=== PATIENT | female | born 1985 | race African-American/Black ===

== ENCOUNTER 2016-05-28 11:13 | Emergency (ER) | payer MEDICAID, OTHER ==
[~2016-05-28] VITALS: Ht 175.3 cm; Wt 130.0 kg
[~2016-05-28 11:13] MED LIST: AUGM875T PO; DIFL150T PO; PRED50 PO
[2016-05-28 11:14] VITALS: BP 134/68; PULSE 76; RESP 18; TEMP 97.9; O2SAT 100
[2016-05-28] MEDS ORDERED: KETOROLAC TROMETHAMINE 60 MG/2 ML (IM) VIAL IM ONE (11:45)
[2016-05-28] MEDS ORDERED: ORPHENADRINE INJ 60 MG/2 ML AMP IM ONE (11:45)
--- NOTE | 2016-05-28 11:56 | PD ---
HPI Chief Complaint: Pain: Acute or Chronic Time Seen by Provider: 11:56 Travel History International Travel<30 days: No Contact w/Intl Traveler<30days: No Traveled to known affect area: No History of Present Illness HPI 30-year-old female, with chronic neck pain, presents to the emergency Department with complaint of right lateral neck pain with worsening over the past couple months. Denies new or recent injury. She has history of chronic neck pain after a traumatic injury in 2011 causing compression fractures with surgical repair in her neck. Over the past few months she has had radiation of pain from her neck down her right arm. Reports as a shocking/burning sensation when they occur. She has followed up with primary care provider and has been given narcotics but she does not want to take them because she is trying to work her job and take care of her children. Reports smoking marijuana numbs the pain and is the only thing that helps the pain, but she cannot smoke marijuana because of her job. Pain is aggravated with movement of the neck, palpation of the neck, movement of the right arm, and spontaneously. Reports numbness and tingling in her right arm that is worse at night. Denies loss of sensation, decreased range of motion, decreased strength to the right upper extremity. Denies fever, chills, nausea, vomiting. Allergies to Cipro and Percocet. Dr. Bay is primary care provider. Has an appointment with Dr. Bay tomorrow morning at 9 AM. No other modifying factors or associated signs and symptoms. PFSH Past Medical History Diabetes: Yes (not current) Diminished Hearing: No ?: Not : 1 Miscarriage: 1 Past Surgical History Abdominal Surgery: No Social History Alcohol Use: No Tobacco Use: Yes (1/2 PK) Substance Use: No Allergies-Medications (Allergen,Severity, Reaction): Coded Allergies: Percocet (Verified Allergy, Severe, 05/28/16) Cipro (Verified Allergy, Mild, ITCH AND PASSOUT, 05/28/16) Reported Meds & Prescriptions Reported Meds & Active Scripts Active Medrol Dosepak (Methylprednisolone) 4 Mg Dspk 4 Mg PO DIRECTED Per Pharmacist direction Robaxin (Methocarbamol) 500 Mg Tab 500 Mg PO QID PRN Ibuprofen 800 Mg Tab 800 Mg PO Q6HR PRN Review of Systems Except as stated in HPI: all other systems reviewed are Neg Physical Exam Narrative GENERAL: Well-nourished, well-developed female patient, in no acute distress; tearful and appears painful SKIN: Warm and dry. HEAD: Atraumatic. Normocephalic. EYES: Pupils equal and round. No scleral icterus. No injection or drainage. ENT: Mucosa pink and moist. Airway patent. NECK: Trachea midline. No lymphadenopathy. Active rotation of the neck greater than 45 left and right. No midline point tenderness on palpation of the cervical spine. Reproducible tenderness to the musculature of the right lateral neck No obvious deformities. CARDIOVASCULAR: Regular rate. RESPIRATORY: No accessory muscle use. GASTROINTESTINAL: Obese. MUSCULOSKELETAL: Right upper extremity supple and non-tense with 2+ radial pulse and sensory intact without erythema or edema; with full range of motion and strength. No obvious deformities. No clubbing. No cyanosis. No edema. Normal gait. BACK: No point tenderness on palpation of spine. No obvious deformities. NEUROLOGICAL: Awake and alert. Oriented 3. No obvious cranial nerve deficits. Motor grossly within normal limits. Normal speech. Moves all extremities. 5/5 strength to all extremities. Sensory intact. PSYCHIATRIC: Appropriate mood and affect; insight and judgment normal. Data Data Last Documented VS Vital Signs Date Time Temp Pulse Resp B/P Pulse Ox O2 Delivery O2 Flow Rate FiO2 05/28/16 11:14 97.9 76 18 134/68 100 Room Air Orders Ketorolac Inj (Toradol Inj) (05/28/16 11:45) Orphenadrine Inj (Norflex Inj) (05/28/16 11:45) MDM Medical Decision Making Medical Screen Exam Complete: Yes Emergency Medical Condition: Yes Medical Record Reviewed: Yes Differential Diagnosis Acute exacerbation of chronic neck pain, cervical radiculopathy, muscle spasms of neck Narrative Course 30-year-old female with chronic neck pain secondary to compression fractures from 2012 after a fall; physical exam and history of present illness consistent with right-sided cervical radiculopathy. No new or recent injury. Patient has been experiencing shooting pains down her right arm for the last [address] Bay is a very care provider. Patient is afebrile and nontoxic-appearing. Neurologically intact. Moving neck freely. Ambulatory with normal gait. No midline point tenderness on palpation of the cervical spine. Toradol and Norflex administered in the ER. Ibuprofen, Robaxin, Medrol Dosepak prescribed for home. Patient has appointment with Dr. Bay tomorrow morning at 9 AM for follow-up. Patient is medically cleared and stable for discharge. Discussed reasons to return to the emergency department. Instructed patient to follow up with primary care provider. Patient agrees with treatment plan. The patients vital signs are stable and the patient is stable for outpatient follow-up and treatment. Patient discharged home, stable and in no acute distress. Diagnosis Primary Impression: Chronic neck pain Additional Impression: Cervical radiculopathy Referrals: Primary Care Physician Patient Instructions: Cervical Radiculopathy (ED), General Instructions, Neck Pain (ED) Additional Instructions: Tylenol or ibuprofen as directed and as needed to reduce pain Robaxin as prescribed for muscle spasms Get adequate rest Ice and/or heating pad to affected area to reduce pain Avoid aggravating activity; increase activity as tolerated Follow-up with primary care provider Return to the emergency department immediately with worsening symptoms Med/Other Pt SpecificInfo: Prescription(s) given Scripts Methylprednisolone Dosepak (Medrol Dosepak)4 Mg Dspk4 Mg PO DIRECTED #1 DSPK Ref 0 Per Pharmacist direction Prov:Rubi Barraza 05/28/16 Methocarbamol (Robaxin)500 Mg [id number] Mg PO QID PRN (MUSCLE SPASM) #30 TAB Ref 0 Prov:Rubi Barraza 05/28/16 Ibuprofen 800 Mg [id number] Mg PO Q6HR PRN (PAIN) #30 TAB Ref 0 Prov:Rubi Barraza 05/28/16 Disposition: 01 DISCHARGE HOME Condition: Stable Rubi Barraza May 28, 2016 11:56
[2016-05-28] MEDS ORDERED: MEDR4PAK PO (11:59)
[2016-05-28] MEDS ORDERED: IBUP800T23 PO (11:59)
[2016-05-28] MEDS ORDERED: ROBA500T PO (11:59)
== END 2016-05-28 12:26 | disposition home or self-care (01) ==
LOC: NEPB 11:13
DX: M54.2 Cervicalgia (principal); M54.12 Radiculopathy, cervical region
CPT/HCPCS: 96372; 99282; J1885; J2360

== ENCOUNTER 2016-07-08 14:01 | Emergency (ER) | payer MEDICAID ==
[~2016-07-08] VITALS: Ht 175.3 cm; Wt 125.0 kg
[~2016-07-08 14:01] MED LIST changes: -AUGM875T PO; -DIFL150T PO; +IBUP800T23 PO; +MEDR4PAK PO; -PRED50 PO; +ROBA500T PO
[2016-07-08 14:03] VITALS: BP 137/62; PULSE 82; RESP 20; TEMP 98.9; O2SAT 97
--- NOTE | 2016-07-08 14:06 | PD ---
Physical Exam Time Seen by Provider: 14:04 Narrative 31 year old female presents for evaluation of skin lesions for one week. VSS Seen at triage desk. Awaiting bed placement. Data Data Last Documented VS Vital Signs Date Time Temp Pulse Resp B/P Pulse Ox O2 Delivery O2 Flow Rate FiO2 07/08/16 14:03 98.9 82 20 137/62 97 Room Air [facility] Medical Record Reviewed: Yes Supervised Visit with LUCIANA: Yes Twin Amaya Jul 08, 2016 14:06
[2016-07-08] MEDS ORDERED: MOBI15TA PO (15:08)
[2016-07-08] MEDS ORDERED: CLIN1CAP5 PO (15:08)
[2016-07-08] MEDS ORDERED: BACT800T5 PO (15:08)
--- NOTE | 2016-07-08 15:08 | PD ---
HPI Chief Complaint: Lump, Cyst, Hernia Time Seen by Provider: 14:58 Travel History International Travel<30 days: No Contact w/Intl Traveler<30days: No Traveled to known affect area: No History of Present Illness HPI 31-year-old female complains of painful lumps on the axilla and groin area. Patient states that the symptoms started a week ago. Patient denies any fever chills. Patient states the pain is sharp pain localized to left axilla an inguinal area. Patient denies any pain radiation. Patient denies any chance of being . PFSH Past Medical History Diabetes: Yes (not current) Patient Takes Glucophage: Yes Diminished Hearing: No ?: Not : 1 Miscarriage: 1 Past Surgical History Abdominal Surgery: No Social History Alcohol Use: No Tobacco Use: Yes (1/2 PK) Substance Use: No Allergies-Medications (Allergen,Severity, Reaction): Coded Allergies: Percocet (Verified Allergy, Severe, 07/08/16) Cipro (Verified Allergy, Mild, ITCH AND PASSOUT, 07/08/16) Reported Meds & Prescriptions Reported Meds & Active Scripts Active Medrol Dosepak (Methylprednisolone) 4 Mg Dspk 4 Mg PO DIRECTED Per Pharmacist direction Robaxin (Methocarbamol) 500 Mg Tab 500 Mg PO QID PRN Ibuprofen 800 Mg Tab 800 Mg PO Q6HR PRN Review of Systems General / Constitutional: No: Fever Eyes: No: Visual changes HENT: No: Headaches Cardiovascular: No: Chest Pain or Discomfort Respiratory: No: Shortness of Breath Gastrointestinal: No: Abdominal Pain Genitourinary: No: Dysuria Musculoskeletal: No: Pain Skin: No Rash Neurologic: No: Weakness Psychiatric: No: Depression Endocrine: No: Polydipsia Hematologic/Lymphatic: No: Easy Bruising Physical Exam Narrative GENERAL: Well-nourished, well-developed patient. SKIN: Focused skin assessment warm/dry. HEAD: Normocephalic. EYES: No scleral icterus. No injection or drainage. NECK: Supple, trachea midline. No JVD or lymphadenopathy. CARDIOVASCULAR: Regular rate and rhythm without murmurs, gallops, or rubs. RESPIRATORY: Breath sounds equal bilaterally. No accessory muscle use. GASTROINTESTINAL: Abdomen soft, non-tender, nondistended. MUSCULOSKELETAL: No cyanosis, or edema. BACK: Nontender without obvious deformity. No CVA tenderness. Patient has painful papular lesions on the left axilla and pubic area. No redness no heat noted induration noted. No discharge. Data Data Last Documented VS Vital Signs Date Time Temp Pulse Resp B/P Pulse Ox O2 Delivery O2 Flow Rate FiO2 07/08/16 14:03 98.9 82 20 137/62 97 Room Air MDM Medical Decision Making Medical Screen Exam Complete: Yes Emergency Medical Condition: Yes Differential Diagnosis Differential diagnosis including folliculitis, cellulitis, abscess. Narrative Course 31-year-old female with painful lumps on the left axilla and pubic area. Diagnosis Primary Impression: Folliculitis Patient Instructions: General Instructions Additional Instructions: Take medications as directed. Follow-up with personal physician. Return if worse. Med/Other Pt SpecificInfo: Prescription(s) given Scripts Meloxicam (Mobic)15 Mg Tab15 Mg PO DAILY #20 TAB Prov:Kilo Laughlin MD 07/08/16 Clindamycin 150 Mg Cap2 Tab PO Q6H #80 CAP Prov:Kilo Laughlin MD 07/08/16 Sulfamethoxazole-Trimethoprim (Bactrim DS)800-160 Mg Tab1 Tab PO BID #20 TAB Prov:Kilo Laughlin MD 07/08/16 Disposition: 01 DISCHARGE HOME Condition: Stable Kilo Laughlin MD Jul 08, 2016 15:08
== END 2016-07-08 15:27 | disposition home or self-care (01) ==
LOC: NEPD 14:01
DX: L73.9 Follicular disorder, unspecified (principal); F17.210 Nicotine dependence, cigarettes, uncomplicated
CPT/HCPCS: 99282

== ENCOUNTER 2016-08-05 18:24 | Emergency (ER) | payer MEDICAID ==
[~2016-08-05] VITALS: Ht 175.3 cm; Wt 127.0 kg
[~2016-08-05 18:24] MED LIST changes: +BACT800T5 PO; +CLIN1CAP5 PO; -MEDR4PAK PO; +MOBI15TA PO
[2016-08-05 18:26] VITALS: BP 132/73; PULSE 84; RESP 18; TEMP 98.3; O2SAT 98
[2016-08-05] MEDS ORDERED: MOBI15TA PO (19:26)
[2016-08-05] MEDS ORDERED: NEUR300C PO (19:26)
[2016-08-05] MEDS ORDERED: KETOROLAC TROMETHAMINE 60 MG/2 ML (IM) VIAL IM ONE (19:30)
--- NOTE | 2016-08-05 19:35 | PD ---
HPI Chief Complaint: Pain: Acute or Chronic Time Seen by Provider: 19:27 Travel History International Travel<30 days: No Contact w/Intl Traveler<30days: No Traveled to known affect area: No History of Present Illness HPI 31-year-old black female presents emergency Department with complaints of pain all over. She was seen today by her neurologist. She states that this was a first visit. He works out of [place]. She states that he did not prescribe her any pain medications therefore she presents to the ER. She states that for several months now she's had pain all over her body in her neck, back, hips, shoulders, hands and feet. She states that she did have a history of diabetes but does not take any medications now. She states that when she has her sugars checked they're normal. She does not know what her hemoglobin A1c is. She denies any trauma. She denies any recent illness. No fever chills. No chest or shortness breath. No nausea vomiting. No abdominal pain or urinary symptoms. She denies any focal weakness. PFSH Past Medical History Narrative Medical Diet-controlled diabetes, chronic neck and back pain Diabetes: Yes (not current) Diminished Hearing: No Tetanus Vaccination: < 5 Years ?: Not LMP: 07/2016 : 1 Miscarriage: 1 Past Surgical History Narrative Surgical Cervical fusion, left ankle surgery Abdominal Surgery: No Social History Alcohol Use: No Tobacco Use: Yes (1/2 PK) Substance Use: No Allergies-Medications (Allergen,Severity, Reaction): Coded Allergies: Percocet (Verified Allergy, Severe, 08/05/16) Cipro (Verified Allergy, Mild, ITCH AND PASSOUT, 08/05/16) Reported Meds & Prescriptions Reported Meds & Active Scripts Active Neurontin (Gabapentin) 300 Mg Cap 300 Mg PO TID Mobic (Meloxicam) 15 Mg Tab 15 Mg PO DAILY Mobic (Meloxicam) 15 Mg Tab 15 Mg PO DAILY Clindamycin (Clindamycin HCl) 150 Mg Cap 2 Tab PO Q6H Bactrim DS (Sulfamethoxazole-Trimethoprim) 800-160 Mg Tab 1 Tab PO BID Robaxin (Methocarbamol) 500 Mg Tab 500 Mg PO QID PRN Ibuprofen 800 Mg Tab 800 Mg PO Q6HR PRN Review of Systems Except as stated in HPI: all other systems reviewed are Neg Physical Exam Narrative GENERAL: This is a well-nourished, well-developed patient, in no apparent distress. SKIN: No rashes, ecchymoses or lesions. Warm and dry. HEAD: Atraumatic. Normocephalic. EYES: PERRL, EOMI, no discharge or injection. No scleral icterus. EARS: Clear NOSE: Nasal turbinates appear normal. THROAT: Mucosa pink and moist. Airway patent. NECK: Trachea midline. Complains of diffuse paracervical tenderness. No spasm. LUNGS: Clear to auscultation. CV: Regular in rhythm. ABDOMEN: Soft nontender. EXT: No clubbing cyanosis or edema. Complaints of diffuse pain in her shoulders , elbows, wrists and hands. She also complains of diffuse pain in her hips, knees and ankles. There is no erythema, edema. She has intact gross sensation. Good pulses. Back: No central bony tenderness. She complains of diffuse paralumbar tenderness. No gross spasm. Data Data Last Documented VS Vital Signs Date Time Temp Pulse Resp B/P Pulse Ox O2 Delivery O2 Flow Rate FiO2 08/05/16 18:26 98.3 84 18 132/73 98 Orders Blood Glucose (08/05/16 19:24) Ketorolac Inj (Toradol Inj) (08/05/16 19:30) MDM Medical Decision Making Medical Screen Exam Complete: Yes Emergency Medical Condition: Yes Medical Record Reviewed: Yes Differential Diagnosis MDM: High Differential diagnoses: Fracture, sprain, strain, dislocation, contusion, neurovascular injury, neuropathy, inflammatory arthritis, autoimmune Narrative Course The patient is given Toradol 60 mg IM. Accu-Chek is 97. This is arthralgias Diagnosis Primary Impression: Arthralgia Qualified Code: M25.50 - Arthralgia, unspecified joint Patient Instructions: General Instructions Additional Instructions: Rest. Meloxicam and Neurontin. Follow-up with your doctor this week. Follow-up with your neurologist next week. Med/Other Pt SpecificInfo: Prescription(s) given Scripts Gabapentin (Neurontin)300 Mg [id number] Mg PO TID #90 CAP Prov:Sameer Gu MD 08/05/16 Meloxicam (Mobic)15 Mg Tab15 Mg PO DAILY #30 TAB Prov:Sameer Gu MD 08/05/16 Disposition: 01 DISCHARGE HOME Condition: Stable Sinan Saenz August 05, 2016 19:35
== END 2016-08-05 20:31 | disposition home or self-care (01) ==
LOC: NEPK 18:24
DX: M25.50 Pain in unspecified joint (principal); E11.9 Type 2 diabetes mellitus without complications; M54.9 Dorsalgia, unspecified; M54.2 Cervicalgia; F17.210 Nicotine dependence, cigarettes, uncomplicated
CPT/HCPCS: 96372; 99283; J1885

== ENCOUNTER 2017-01-05 07:50 | Emergency (ER) | payer MEDICAID ==
[~2017-01-05] VITALS: Ht 175.3 cm; Wt 130.0 kg
[~2017-01-05 07:50] MED LIST changes: -BACT800T5 PO; -CLIN1CAP5 PO; +NEUR300C PO
[2017-01-05 07:52] VITALS: BP 163/92; PULSE 84; RESP 14; TEMP 98.5; O2SAT 98
[2017-01-05] MEDS ORDERED: IBUP800T23 PO ×2 (08:13→08:14)
--- NOTE | 2017-01-05 08:21 | PD ---
HPI Chief Complaint: Injury Time Seen by Provider: 08:03 Travel History International Travel<30 days: No Contact w/Intl Traveler<30days: No Traveled to known affect area: No History of Present Illness HPI 31-year-old female presents to the emergency department with complaint of left foot pain after hitting her foot on a couch approximately 3 weeks ago. Reports history of neuropathy and endorses no change in numbness or tingling to the foot. Denies loss of sensation, decreased range of motion, decreased strength to the affected extremity. Has been ambulatory on the affected extremity. Symptoms are mild in severity. Pain is aggravated with palpation, movement, ambulation. Pain radiates up the foot. Has not taken any medication or tried any treatments to alleviate her symptoms. Has no other medical complaints. Allergies to acetaminophen, ciprofloxacin, oxycodone. No other modifying factors or associated signs and symptoms. PFSH Past Medical History Anxiety: Yes Depression: Yes Diabetes: Yes (not current) Patient Takes Glucophage: No Diminished Hearing: No ?: Not : 1 Miscarriage: 1 Past Surgical History Abdominal Surgery: No Other Surgery: Yes (NECK SX) Social History Alcohol Use: Yes Tobacco Use: Yes (/2 PK) Substance Use: No Allergies-Medications (Allergen,Severity, Reaction): Coded Allergies: acetaminophen (Unverified Allergy, Severe, 11/11/16) oxycodone (Unverified Allergy, Severe, 11/11/16) ciprofloxacin (Unverified Allergy, Mild, ITCH AND PASSOUT, 11/11/16) Reported Meds & Prescriptions Reported Meds & Active Scripts Active Ibuprofen 800 Mg Tab 800 Mg PO Q6HR PRN Ibuprofen 800 Mg Tab 800 Mg PO Q6HR PRN Neurontin (Gabapentin) 300 Mg Cap 300 Mg PO TID Mobic (Meloxicam) 15 Mg Tab 15 Mg PO DAILY Robaxin (Methocarbamol) 500 Mg Tab 500 Mg PO QID PRN Review of Systems Except as stated in HPI: all other systems reviewed are Neg Physical Exam Narrative GENERAL: Well-nourished, well-developed black female patient, in no acute distress SKIN: Warm and dry. HEAD: Atraumatic. Normocephalic. EYES: Pupils equal and round. No scleral icterus. No injection or drainage. ENT: Mucosa pink and moist. Airway patent. NECK: Trachea midline. CARDIOVASCULAR: Regular rate. RESPIRATORY: No accessory muscle use. GASTROINTESTINAL: Obese. MUSCULOSKELETAL: Left foot with tenderness on palpation to the dorsal aspect at the area of the third metatarsal; no obvious deformity; no edema, erythema, ecchymosis; 2+ pedal pulse; sensory intact. No obvious deformities. No clubbing. No cyanosis. No edema. NEUROLOGICAL: Awake and alert. Oriented 3. No obvious cranial nerve deficits. Motor grossly within normal limits. Normal speech. PSYCHIATRIC: Appropriate mood and affect; insight and judgment normal. Data Data Last Documented VS Vital Signs Date Time Temp Pulse Resp B/P (MAP) Pulse Ox O2 Delivery O2 Flow Rate FiO2 01/05/17 09:16 01/05/17 07:52 98.5 84 14 98 Orders Orders Foot, Complete ([id number]) (01/05/17 08:05) Crutches (01/05/17 08:53) [facility] Medical Decision Making Medical Screen Exam Complete: Yes Emergency Medical Condition: Yes Medical Record Reviewed: Yes Differential Diagnosis Contusion, fracture, sprain Narrative Course 31-year-old female with left foot injury. Asked the patient pain medication and she declined. Left foot x-ray ordered. 0849: Left foot x-ray with no acute findings. Crutches provided for support. Patient does not want an Rohit bandage. Instructed patient to follow up with podiatry. Instructed patient to follow up with primary care provider. Patient verbalizes understanding and agreement with treatment plan. Patient is medically cleared and stable for discharge. Discussed reasons to return to the emergency department. Patient agrees with treatment plan. The patients vital signs are stable and the patient is stable for outpatient follow-up and treatment. Patient discharged home, stable and in no acute distress. Diagnosis Primary Impression: Injury of left foot Qualified Codes: S99.922A - Unspecified injury of left foot, initial encounter Referrals: Pediatric Anesthesiologist Primary Care Physician Patient Instructions: Foot Sprain (ED), General Instructions Additional Instructions: Tylenol or ibuprofen as directed and as needed for pain and inflammation Rest, ice, compress, and elevate extremity to decrease pain and inflammation Crutches for support Avoid aggravating activity; increase activity as tolerated Follow-up with primary care provider Return to the emergency department immediately with worsening of symptoms Med/Other Pt SpecificInfo: No Meds Exist/No RX given Scripts Ibuprofen (Ibuprofen) 800 Mg Tab 800 MG PO Q6HR Y for PAIN, #30 TAB 0 Refills Prov: Rubi Barraza 01/05/17 Ibuprofen (Ibuprofen) 800 Mg Tab 800 MG PO Q6HR Y for PAIN, #30 TAB 0 Refills Prov: Rubi Barraza 01/05/17 Disposition: 01 DISCHARGE HOME Condition: Stable Rubi Barraza Jan 05, 2017 08:21
--- NOTE | 2017-01-05 08:42 | RADRPT ---
EXAM DATE/TIME: 01/05/2017 08:26 [facility] COMPARISON: No previous studies available for comparison. INDICATIONS : Hit 3rd toe on couch one month ago. Pain toe radiating into foot with weight bearing. MEDICAL HISTORY : Neuropathy SURGICAL HISTORY : None. ENCOUNTER: Initial ACUITY: 1 month PAIN SCORE: 5/10 LOCATION: Left foot FINDINGS: Three view examination of the left foot demonstrates no soft tissue swelling, dislocation, or fractur e. The tarsal bones appear intact. The interphalangeal and metatarsophalangeal joints are intact. The calcaneus is intact. Bony mineralization is normal. CONCLUSION: No acute fracture. Satish Shelton MD on January 05, 2017 at 8:39 Board Certified Radiologist. This report was verified electronically.
== END 2017-01-05 09:17 | disposition home or self-care (01) ==
LOC: NEPD 07:50
DX: S99.922A Unspecified injury of left foot, initial encounter (principal); W22.03XA Walked into furniture, initial encounter; Y93.01 Activity, walking, marching and hiking; Z72.0 Tobacco use
CPT/HCPCS: 73630; 99283; E0113

== ENCOUNTER 2017-03-09 08:23 | Emergency (ER) | payer MEDICAID ==
[~2017-03-09] VITALS: Ht 175.3 cm; Wt 126.0 kg
[~2017-03-09 08:23] MED LIST changes: +IBUP1TAB7 PO; -IBUP800T23 PO
[2017-03-09 08:24] VITALS: BP 142/65; PULSE 88; RESP 16; TEMP 99; O2SAT 99
--- NOTE | 2017-03-09 08:33 | PD ---
HPI Chief Complaint: Skin Problem Time Seen by Provider: 08:32 Travel History International Travel<30 days: No Contact w/Intl Traveler<30days: No Traveled to known affect area: No History of Present Illness HPI 31-year-old Afro-[place] female presents the emergency department with draining tender small abscess to the right anterior ear to the anterior aspect of the ear canal. Patient states there was a larger bump there last night which then drained purulent material and now feels somewhat better. She is concerned that she might need an antibiotic. There is a question of MRSA for her in the past but the culture was negative at that time. The patient denies any injury to this area. She denies fever or chills or other symptoms. Pain is 6 out of 10. Patient is allergic to acetaminophen, oxycodone, and Cipro. PFSH Past Medical History Anxiety: Yes Depression: Yes Diabetes: Yes (not current) Diminished Hearing: No ?: Not : 1 Miscarriage: 1 Past Surgical History Abdominal Surgery: No Other Surgery: Yes (NECK SX) Social History Alcohol Use: Yes Tobacco Use: Yes (1/2 PK) Substance Use: No Allergies-Medications (Allergen,Severity, Reaction): Coded Allergies: acetaminophen (Unverified Allergy, Severe, 03/09/17) oxycodone (Unverified Allergy, Severe, 03/09/17) ciprofloxacin (Unverified Allergy, Mild, ITCH AND PASSOUT, 03/09/17) Reported Meds & Prescriptions Reported Meds & Active Scripts Active Ibuprofen 800 Mg Tab 800 Mg PO Q6HR PRN Ibuprofen 800 Mg Tab 800 Mg PO Q6HR PRN Neurontin (Gabapentin) 300 Mg Cap 300 Mg PO TID Mobic (Meloxicam) 15 Mg Tab 15 Mg PO DAILY Robaxin (Methocarbamol) 500 Mg Tab 500 Mg PO QID PRN Review of Systems Except as stated in HPI: all other systems reviewed are Neg General / Constitutional: No: Fever, Chills Eyes: No: Visual changes HENT: Positive: Ear Discharge, Earache, No: Headaches, Sore Throat, Rhinitis, Rhinorrhea, Congestion, Nosebleed, Neck Stiffness, Neck Pain Cardiovascular: No: Chest Pain or Discomfort Respiratory: No: Shortness of Breath Gastrointestinal: No: Abdominal Pain Genitourinary: No: Dysuria Musculoskeletal: No: Pain Skin: Positive Lesions (see history present illness), No Rash Neurologic: No: Weakness Psychiatric: No: Depression Endocrine: No: Polydipsia Hematologic/Lymphatic: No: Easy Bruising Physical Exam Narrative GENERAL: Patient appears in no acute distress. SKIN: Warm and dry. Normal color. Normal turgor. Patient has a small 3 mm abscess to the anterior aspect of the right ear canal with purulent drainage noted. Some mild erythema and tenderness to the area. HEAD: Atraumatic. Normocephalic. EYES: Pupils equal and round. No scleral icterus. No injection or drainage. ENT: No nasal bleeding or discharge. Mucous membranes pink and moist. Pharynx is clear. Airway is patent. TMs are clear. See skin NECK: Trachea midline. No JVD. CARDIOVASCULAR: Regular rate and rhythm. RESPIRATORY: No accessory muscle use. Clear to auscultation. Breath sounds equal bilaterally. GASTROINTESTINAL: Abdomen soft, non-tender, nondistended. Hepatic and splenic margins not palpable. MUSCULOSKELETAL: Extremities without clubbing, cyanosis, or edema. No obvious deformities. NEUROLOGICAL: Awake and alert. No obvious cranial nerve deficits. Motor grossly within normal limits. Five out of 5 muscle strength in the arms and legs. Normal speech. PSYCHIATRIC: Appropriate mood and affect; insight and judgment normal. Data Data Last Documented VS Vital Signs Date Time Temp Pulse Resp B/P (MAP) Pulse Ox O2 Delivery O2 Flow Rate FiO2 03/09/17 08:24 99.0 88 16 142/65 (90) 99 Room Air MDM Medical Decision Making Medical Screen Exam Complete: Yes Emergency Medical Condition: Yes Differential Diagnosis Cellulitis. Abscess. MRSA. Narrative Course Culture is obtained and sent to the lab. Patient will be treated with Bactrim twice a day 7 days. Patient also to use Bactroban ointment twice daily for 7 days. Patient take ibuprofen as needed for pain. Follow-up with primary care physician recommended. Diagnosis Primary Impression: Abscess of right ear canal Patient Instructions: Cellulitis (ED), General Instructions, MRSA (Methicillin- Resistant Staphylococcus Aureus) (ED) Additional Instructions: Culture is obtained and sent to the lab. Patient will be treated with Bactrim twice a day 7 days. Patient also to use Bactroban ointment twice daily for 7 days. Patient take ibuprofen as needed for pain. Follow-up with primary care physician recommended. Med/Other Pt SpecificInfo: Prescription(s) given Disposition: 01 DISCHARGE HOME Condition: Stable Jigar Martínez Mar 09, 2017 08:33
[2017-03-09] MEDS ORDERED: BACTOIN EACH NARE (08:43)
[2017-03-09] MEDS ORDERED: BACT800T5 PO (08:43)
== END 2017-03-09 08:58 | disposition home or self-care (01) ==
LOC: NEPD 08:23
DX: H66.41 Suppurative otitis media, unspecified, right ear (principal); F17.200 Nicotine dependence, unspecified, uncomplicated
CPT/HCPCS: 86403; 87070; 87205; 99282